=== PATIENT | female | born 1995 | race Caucasian/White ===

== ENCOUNTER 2022-10-16 20:13 | Observation (INO) | payer MEDICAID, OTHER ==
[~2022-10-16] VITALS: Ht 162.6 cm; Wt 77.1 kg
[2022-10-16] MEDS ORDERED: DHA (21:02)
[2022-10-16] MEDS ORDERED: PRENATAL (21:02)
[2022-10-16 21:05] VITALS: BP 131/87
[2022-10-16 21:17] LABS: BASOPHILS % (AUTO) 0.4 % (0.0-2.0); EOSINOPHILS # (AUTO) 0.2 K/uL (0-0.4); EOSINOPHILS % (AUTO) 1.9 % (0.0-4.0); HEMATOCRIT 32.8 % (36-48); HEMOGLOBIN 10.9 g/dL (12.0-16.0); LYMPHOCYTES # (AUTO) 1.6 K/uL (2.5-16.5); LYMPHOCYTES % (AUTO) 16.8 % (20.5-51.1); MEAN CORPUSCULAR HEMOGLOBIN 28 pg (27-31); MEAN CORPUSCULAR HGB CONC 33 g/dL (33-37); MEAN CORPUSCULAR VOLUME 82.7 fL (80-94); MONOCYTES # (AUTO) 0.8 K/uL (0.8-1.0); MONOCYTES % (AUTO) 8.5 % (1.7-9.3); NEUTROPHILS # (AUTO) 7.1 K/uL (1.8-7.7); NEUTROPHILS % (AUTO) 72.4 % (42.2-75.2); PLATELET COUNT (AUTO) 202 K/uL (140-450); RED BLOOD CELL COUNT(AUTO) 3.96 MIL/uL (4.20-5.40); RED CELL DISTRIBUTION WIDTH 14.3 % (11.6-13.7); WHITE BLOOD COUNT (AUTO) 9.8 K/uL (4.8-10.8)
[2022-10-16 21:20] LABS: BILIRUBIN,URINE NEGATIVE (NEGATIVE); BLOOD, URINE NEGATIVE (NEGATIVE); COLOR,URINE YELLOW (YELLOW); LEUKOCYTE ESTERASE ,URINE 1+ (NEGATIVE); NITRITE, URINE NEGATIVE (NEGATIVE); UGLUCOSE NEGATIVE (NEGATIVE)
[2022-10-16 21:31] LABS: APPEARANCE,URINE HAZY (CLEAR)
[2022-10-16 21:34] LABS: ALBUMIN 2.5 g/dL (3.4-5.0); ANION GAP 11.1 (8-16); CREATININE 0.7 mg/dL (0.6-1.3); POTASSIUM 4.1 mmol/L (3.5-5.1); TOTAL BILIRUBIN 0.1 mg/dL (0.0-1.0)
[2022-10-16 21:39] LABS: BARBITURATE, URINE NEGATIVE ng/ml (NEG <=200); BENZODIAZEPINE, URINE NEGATIVE ng/mL (NEG <=200); CANNABINOID, URINE NEGATIVE ng/mL (NEG <=50); COCAINE, URINE NEGATIVE ng/mL (NEG <=300); OPIATE, URINE NEGATIVE ng/mL (NEG <=2000); PHENCYCLIDINE SCREEN,URINE NEGATIVE ng/mL (NEG <=25); RBC,URINE NONE SEEN /HPF (0-5)
--- NOTE | 2022-10-16 23:51 | NUR ---
Received a call from [facility] from [facility]. Group B strep came back positive. Will let L&D charge know
== END 2022-10-16 23:10 | disposition home or self-care (01) ==
LOC: MLD 20:13
PROVIDERS: ADMIT Obstetrics & Gynecology; ATTEND Obstetrics & Gynecology
DX: O36.8130 Decreased fetal movements, third trimester, not applicable or unspecified (principal); Z20.822 Contact with and (suspected) exposure to COVID-19; Z3A.39 39 weeks gestation of pregnancy
CPT/HCPCS: 36415; 59025; 76805; 80053; 80305; 81001; 85025; 86592; 86703; 86762; 86886; 86900; 86901; 87086; 87340; 87426; 87653; G0378; Q0092

== ENCOUNTER 2022-10-22 04:36 | Emergency (ER) | payer OTHER ==
[~2022-10-22] VITALS: Ht 160 cm; Wt 99.5 kg
[~2022-10-22 04:36] MED LIST: DHA; PRENATAL
[2022-10-22 04:40] VITALS: BP 129/77
--- NOTE | 2022-10-22 04:40 | NUR ---
TO BED AMBULATORY
--- NOTE | 2022-10-22 05:03 | NUR ---
Dr. Hamlin examining patient.
[2022-10-22] MEDS ORDERED: MORPHINE SULFATE 2 MG/ML SYR IVP STA (05:09)
[2022-10-22] MEDS ORDERED: KETOROLAC 30 MG/ML VIAL IVP ONE (05:10)
[2022-10-22 05:40] LABS: BASOPHILS % (AUTO) 0.3 % (0.0-2.0); EOSINOPHILS # (AUTO) 0.3 K/uL (0-0.4); EOSINOPHILS % (AUTO) 2.7 % (0.0-4.0); HEMOGLOBIN 10.8 g/dL (12.0-16.0); LYMPHOCYTES # (AUTO) 2.2 K/uL (2.5-16.5); LYMPHOCYTES % (AUTO) 17.3 % (20.5-51.1); MEAN CORPUSCULAR HEMOGLOBIN 27 pg (27-31); MEAN CORPUSCULAR HGB CONC 33 g/dL (33-37); MEAN CORPUSCULAR VOLUME 82.8 fL (80-94); MONOCYTES # (AUTO) 0.9 K/uL (0.8-1.0); NEUTROPHILS # (AUTO) 9.3 K/uL (1.8-7.7); NEUTROPHILS % (AUTO) 72.7 % (42.2-75.2); PLATELET COUNT (AUTO) 217 K/uL (140-450); RED BLOOD CELL COUNT(AUTO) 3.99 MIL/uL (4.20-5.40); WHITE BLOOD COUNT (AUTO) 12.8 K/uL (4.8-10.8)
[2022-10-22 05:54] LABS: ALBUMIN 2.6 g/dL (3.4-5.0); ANION GAP 12.4 (8-16); CARBON DIOXIDE 26.3 mmol/L (21-32); CREATININE 0.6 mg/dL (0.6-1.3); POTASSIUM 3.7 mmol/L (3.5-5.1); TOTAL BILIRUBIN 0.1 mg/dL (0.0-1.0)
--- NOTE | 2022-10-22 06:03 | NUR ---
Ultrasound at bedside.
[2022-10-22 06:11] LABS: APPEARANCE,URINE CLEAR (CLEAR); BILIRUBIN,URINE NEGATIVE (NEGATIVE); BLOOD, URINE 1+ (NEGATIVE); COLOR,URINE YELLOW (YELLOW); LEUKOCYTE ESTERASE ,URINE NEGATIVE (NEGATIVE); NITRITE, URINE NEGATIVE (NEGATIVE); UGLUCOSE NEGATIVE (NEGATIVE)
[2022-10-22 06:21] LABS: RBC,URINE 11-20 (MOD) /HPF (0-5)
[2022-10-22 06:22] LABS: FINE GRANULAR CASTS,URINE 0-10 /LPF (None Seen)
--- NOTE | 2022-10-22 07:10 | NUR ---
Patient discharged with v/s stable. Written and verbal after care instructions given and explained. Patient verbalized understanding. Ambulatory with steady gait. All questions addressed prior to discharge. Advised to follow up with PMD.
[2022-10-22 07:23] VITALS: BP 109/76
== END 2022-10-22 07:10 | disposition home or self-care (01) ==
LOC: MED 04:36
DX: R10.30 Lower abdominal pain, unspecified (principal); M79.652 Pain in left thigh; J45.909 Unspecified asthma, uncomplicated; Z79.899 Other long term (current) drug therapy
CPT/HCPCS: 36415; 76856; 80053; 81001; 85025; 85610; 85730; 86886; 86900; 86901; 93970; 93976; 96374; 96375; 99285; J1885; J2270; Q0092